=== PATIENT | female | born 1990 | race Caucasian/White ===

== ENCOUNTER 2016-11-27 17:32 | Outpatient (CLI) | payer OTHER | END 2016-11-28 13:15 | disposition home or self-care (01) | LOC: GENOP 17:32 | DX: O42.913 Preterm premature rupture of membranes, unspecified as to length of time between rupture and onset of labor, third trimester (principal); O26.893 Other specified pregnancy related conditions, third trimester; R10.9 Unspecified abdominal pain; Z3A.35 35 weeks gestation of pregnancy | CPT/HCPCS: 81001; 83518; 87086; 96360; 96361; 96372; 96374; 96375; J2300; J2405; J3105; J7120; Q2039 ==

== ENCOUNTER 2016-11-29 20:32 | Outpatient (CLI) | payer OTHER | END 2016-11-29 23:15 | disposition home or self-care (01) | LOC: GENOP 20:32 | DX: O26.893 Other specified pregnancy related conditions, third trimester (principal); R10.9 Unspecified abdominal pain; Z3A.35 35 weeks gestation of pregnancy | CPT/HCPCS: 81001; G0463 ==

== ENCOUNTER 2016-12-01 21:42 | Outpatient (CLI) | payer OTHER | END 2016-12-02 05:13 | disposition home or self-care (01) | LOC: GENOP 21:42 | DX: O26.893 Other specified pregnancy related conditions, third trimester (principal); R10.9 Unspecified abdominal pain; Z3A.36 36 weeks gestation of pregnancy | CPT/HCPCS: G0463 ==

== ENCOUNTER 2016-12-06 16:56 | Outpatient (CLI) | payer OTHER | END 2016-12-06 18:08 | disposition home or self-care (01) | LOC: GENOP 16:56 | DX: O99.89 Other specified diseases and conditions complicating pregnancy, childbirth and the puerperium (principal); R10.9 Unspecified abdominal pain; Z3A.36 36 weeks gestation of pregnancy; R25.2 Cramp and spasm | CPT/HCPCS: 81001; G0463 ==

== ENCOUNTER → 2016-12-16 | Outpatient (CLI) | payer OTHER ==
[~2016-12-16] MED LIST: COLACE 100MG C100 MG PO
== END ==
LOC: GENOP 15:13
DX: O42.92 Full-term premature rupture of membranes, unspecified as to length of time between rupture and onset of labor (principal); Z3A.38 38 weeks gestation of pregnancy
CPT/HCPCS: 81001; 83518; G0463

== ENCOUNTER 2016-12-22 21:47 | Outpatient (CLI) | payer OTHER | END 2016-12-23 00:03 | disposition home or self-care (01) | LOC: GENOP 21:47 | DX: O99.89 Other specified diseases and conditions complicating pregnancy, childbirth and the puerperium (principal); R10.9 Unspecified abdominal pain; Z3A.35 35 weeks gestation of pregnancy | CPT/HCPCS: 81001; G0463; J7120 ==

== ENCOUNTER 2016-12-24 18:55 | Outpatient (CLI) | payer OTHER | END 2016-12-24 22:15 | disposition home or self-care (01) | LOC: GENOP 18:55 | DX: O99.89 Other specified diseases and conditions complicating pregnancy, childbirth and the puerperium (principal); M54.9 Dorsalgia, unspecified; O36.8130 Decreased fetal movements, third trimester, not applicable or unspecified; Z3A.35 35 weeks gestation of pregnancy | CPT/HCPCS: 81001; 96360; J7120 ==

== ENCOUNTER 2016-12-27 05:24 | Inpatient (IN) | payer OTHER ==
[2016-12-27 06:44] LABS: HEMOGLOBIN 9.3 gm/dl (12.3-15.3); RED BLOOD COUNT 3.33 M/UL (4.00-5.10); WHITE BLOOD COUNT 8.6 K/UL (4.5-11.0)
[2016-12-28 03:28] LABS: HEMOGLOBIN 8.6 gm/dl (12.3-15.3)
[2016-12-28] MEDS ORDERED: COLACE 100MG C100 MG PO (13:52)
== END 2016-12-28 17:20 | disposition home or self-care (01) | DRG 775 ==
LOC: OB 05:24
PROVIDERS: ADMIT Obstetrics & Gynecology
DX: O99.354 Diseases of the nervous system complicating childbirth (principal); O70.0 First degree perineal laceration during delivery; O71.5 Other obstetric injury to pelvic organs; I45.9 Conduction disorder, unspecified; G40.909 Epilepsy, unspecified, not intractable, without status epilepticus; Z3A.39 39 weeks gestation of pregnancy; Z37.0 Single live birth; O99.344 Other mental disorders complicating childbirth; F32.9 Major depressive disorder, single episode, unspecified; K21.9 Gastro-esophageal reflux disease without esophagitis; Z23 Encounter for immunization; Z88.8 Allergy status to other drugs, medicaments and biological substances; Z83.2 Family history of diseases of the blood and blood-forming organs and certain disorders involving the immune mechanism; Z82.0 Family history of epilepsy and other diseases of the nervous system; Z81.8 Family history of other mental and behavioral disorders; Z83.3 Family history of diabetes mellitus; Z80.3 Family history of malignant neoplasm of breast; Z82.5 Family history of asthma and other chronic lower respiratory diseases; Z80.41 Family history of malignant neoplasm of ovary; Z80.1 Family history of malignant neoplasm of trachea, bronchus and lung
CPT/HCPCS: 36415; 81001; 85014; 85018; 85025; 90707; 90715; 96360; J2300; J2590; J7120